=== PATIENT | male | born 1990 | race African-American/Black ===

== ENCOUNTER 2016-11-21 15:25 | Emergency (ER) | payer BC ==
[~2016-11-21] VITALS: Ht 177.8 cm; Wt 74.8 kg
[2016-11-21 15:30] VITALS: BP 126/85
[2016-11-21 16:17] LABS: BASO % 1 % (0-3); EOS # 0.1 x10^3/uL (0.0-0.7); EOS % 2 % (0-3); HEMATOCRIT 40.7 % (39.0-53.0); HEMOGLOBIN 13.5 g/dL (13.0-17.5); LYMPH # 1.4 x10^3/uL (1.0-4.8); LYMPH % 34 % (24-48); MEAN CORPUSCULAR HEMOGLOBIN 28 pg (25-35); MEAN CORPUSCULAR HGB CONC 33 g/dL (31-37); MEAN CORPUSCULAR VOLUME 85 fL (79-100); MONO # 0.6 x10^3/uL (0.0-1.1); MONO % 14 % (0-9); NEUT # 2.2 x10^3uL (1.8-7.7); NEUT % 50 % (31-73); PLATELET COUNT 176 x10^3/uL (140-400); RED BLOOD COUNT 4.78 x10^6/uL (4.30-5.70); RED CELL DISTRIBUTION WIDTH 12.7 % (11.5-14.5); WHITE BLOOD COUNT 4.3 x10^3/uL (4.0-11.0)
[2016-11-21 16:30] LABS: ALBUMIN 3.7 g/dL (3.4-5.0); ALBUMIN/GLOBULIN RATIO 1.1 (1.0-1.7); CALCIUM 8.7 mg/dL (8.5-10.1); CREATININE 1.3 mg/dL (0.7-1.3); GFR 67.8; POTASSIUM 4.2 mmol/L (3.5-5.1); TOTAL BILIRUBIN 0.3 mg/dL (0.2-1.0)
[2016-11-21] MEDS ORDERED: IV NORMAL SALINE 1,000ML 1,000 ML IV SCH (16:30)
--- NOTE | 2016-11-21 16:30 | PHYS DOC ---
Adult General Chief Complaint Chief Complaint: ABDOMINAL PAIN HPI HPI Patient is a 26-year-old male who presents ambulatory to the emergency department complaining of abdominal pain. Patient ate a salad and some possible last night and also drank some alcohol. His stomach did not hurt last night. This morning he woke up with abdominal pain and he did vomit once or twice. He went ahead and went to work and did work today, but he continued to have abdominal pain all day long. Sometimes he had to walk hunched over. It hurts to walk. His stomach just hurts, he does not think it feels crampy or like diarrhea pain, it just hurts. The pain goes through to his back. He did have a somewhat loose stool one time. No blood or black stools. He's never had this before. He's never had abdominal surgery. No history of pancreatitis. He does drink alcohol "sometimes" but is never had a problem in the past. Patient denies chronic medical problems. Review of Systems Review of Systems Constitutional: Denies fever or chills [] HENT: Denies nasal congestion or sore throat [] Respiratory: Denies cough or shortness of breath [] Cardiovascular: Denies CP GI: As in history of present illness : Denies dysuria or hematuria [] Musculoskeletal: Denies back pain or joint pain [] Integument: Denies rash or skin lesions [] Neurologic: Denies headache, focal weakness or sensory changes [] Current Medications Current Medications Current Medications Medications (Trade) Dose Ordered Sig/Afshan Start Time Stop Time Status Last Admin Dose Admin Sodium Chloride 1,000 ml @ 1,000 mls/hr Q1H 11/21/16 15:55 11/21/16 16:54 UNV Allergies Allergies Allergies Coded Allergies Type Severity Reaction Last Updated Verified No Known Drug Allergies 11/21/16 No Physical Exam Physical Exam Constitutional: Well developed, well nourished, no acute distress, non-toxic appearance. Alert, mentating normally. HENT: Normocephalic, atraumatic, bilateral external ears normal, nose normal. [ ] Eyes: conjunctiva normal, no discharge. [] Neck: Normal range of motion, no stridor. [] Cardiovascular:Heart rate regular rhythm, no murmur [] Lungs & Thorax: Bilateral breath sounds clear to auscultation [] Abdomen: Bowel sounds normal, soft, nondistended, no masses, no pulsatile masses. Moderate tenderness to palpation across the upper abdomen, nonlocalized , more tender in the mid abdomen but also tender both right upper quadrant and left upper quadrant. No significant lower abdominal tenderness. Skin: Warm, dry, no erythema, no rash. [] Extremities: No tenderness, no cyanosis, no clubbing, ROM intact, no edema. [] Neurologic: Alert and oriented X 3, normal motor function, normal sensory function, no focal deficits noted. [] Current Patient Data Lab Results Laboratory Tests Test 11/21/16 16:00 White Blood Count 4.3 x10^3/uL (4.0-11.0) Red Blood Count 4.78 x10^6/uL (4.30-5.70) Hemoglobin 13.5 g/dL (13.0-17.5) Hematocrit 40.7 % (39.0-53.0) Mean Corpuscular Volume 85 fL (79-100) Mean Corpuscular Hemoglobin 28 pg (25-35) Mean Corpuscular Hemoglobin Concent 33 g/dL (31-37) Red Cell Distribution Width 12.7 % (11.5-14.5) Platelet Count 176 x10^3/uL (140-400) Neutrophils (%) (Auto) 50 % (31-73) Lymphocytes (%) (Auto) 34 % (24-48) Monocytes (%) (Auto) 14 % (0-9) H Eosinophils (%) (Auto) 2 % (0-3) Basophils (%) (Auto) 1 % (0-3) Neutrophils # (Auto) 2.2 x10^3uL (1.8-7.7) Lymphocytes # (Auto) 1.4 x10^3/uL (1.0-4.8) Monocytes # (Auto) 0.6 x10^3/uL (0.0-1.1) Eosinophils # (Auto) 0.1 x10^3/uL (0.0-0.7) Basophils # (Auto) 0.0 x10^3/uL (0.0-0.2) EKG EKG [] Radiology/Procedures Radiology/Procedures Three-view acute abdomen series read by me. Heart size is normal. Lung randle are clear. No cardiopulmonary abnormality. No free air. No obstructive bowel gas pattern. Unremarkable abdominal series. [] Course & Med Decision Making Course & Med Decision Making Pertinent Labs and Imaging studies reviewed. (See chart for details) 26-year-old healthy male presents with abdominal pain which started early this morning and has persisted all day long. He did drink alcohol last night. He has no history of pancreatitis. I discussed with the patient that we would give him some IV fluids while we check some labs and abdominal series, he is agreeable to that plan. Labs are all entirely normal, lipase normal. He was given a dose of IV Pepcid. See instructions for plan. [] Dragon Disclaimer Dragon Disclaimer This chart was dictated in whole or in part using Voice Recognition software in a busy, high-work load, and often noisy Emergency Department environment. It may contain unintended and wholly unrecognized errors or omissions. Departure Departure: Impression: Primary Impression: Abdominal pain, bilateral upper quadrant Additional Impression: Alcoholic gastritis Disposition: 01 HOME, SELF-CARE Condition: STABLE Patient Instructions: Alcoholic Gastritis-Brief Additional Instructions: I believe your pain is probably inflamed stomach caused by alcohol. For 1 week, purchase [id number] acid reducing medicine such as Nexium and take as directed. Don't drink any alcohol, eat and drink only things that are soothing to your stomach, nothing spicy or greasy. If not getting better in 2-3 days, see your doctor for recheck. Problem Qualifiers EMANUEL SCHROEDER MD November 21, 2016 16:30
--- NOTE | 2016-11-21 16:33 | RAD ---
Indication: Abdominal pain for one day. Technique: Abdominal series with PA chest radiograph contains 3 images. No comparison is available. Findings: The lungs are clear. The heart is not enlarged. There is no free air. There is no dilated bowel loop. Bony structures are intact. Impression: Nonobstructive bowel gas pattern.
[2016-11-21] MEDS ORDERED: FAMOTIDINE 20 MG/2 ML VIAL ONE (16:52)
[2016-11-21] MEDS ORDERED: FAMOTIDINE 20 MG/2 ML VIAL IVP ONE (17:00)
== END 2016-11-21 17:12 | disposition home or self-care (01) ==
LOC: ER 15:25
DX: K29.20 Alcoholic gastritis without bleeding (principal)
CPT/HCPCS: 36415; 74022; 80053; 83690; 85027; 96361; 96374; 99285; S0028; J7030

== ENCOUNTER 2016-12-20 10:48 | Emergency (ER) | payer BC ==
[~2016-12-20] VITALS: Ht 177.8 cm; Wt 74.8 kg
[2016-12-20 10:59] VITALS: BP 100/71
[2016-12-20] MEDS ORDERED: CEPH-264 PO (11:09)
[2016-12-20] MEDS ORDERED: POLY10DR LEFTEYE (11:09)
--- NOTE | 2016-12-20 11:13 | PHYS DOC ---
Past History Past Medical History: No Pertinent History Past Surgical History: No Surgical History Alcohol Use: Occasionally Drug Use: None Adult General Chief Complaint Chief Complaint: EYE PROBLEMS HPI HPI This 26-year-old man presents because of his left eyelid is swollen for the past several days. His eyelid has not been itching or hurting but has been swollen and red. Review of Systems Review of Systems Constitutional: Denies fever or chills [] Eyes: Denies change in visual acuity, he does have some redness and swelling of the left upper eyelid] HENT: Denies nasal congestion or sore throat [] Respiratory: Denies cough or shortness of breath [] Cardiovascular: No additional information not addressed in HPI [] GI: Denies abdominal pain, nausea, vomiting, bloody stools or diarrhea [] : Denies dysuria or hematuria [] Musculoskeletal: Denies back pain or joint pain [] Integument: Denies rash or skin lesions [] Neurologic: Denies headache, focal weakness or sensory changes [] Endocrine: Denies polyuria or polydipsia [] Allergies Allergies Allergies Coded Allergies Type Severity Reaction Last Updated Verified No Known Drug Allergies 12/20/16 No Physical Exam Physical Exam Constitutional: Well developed, well nourished, no acute distress, non-toxic appearance. [] HENT: Normocephalic, atraumatic, bilateral external ears normal, oropharynx moist, no oral exudates, nose normal. [] Eyes: PERRLA, EOMI, conjunctiva normal, no discharge. There is swelling of the left upper eyelid as well as some redness and slight amount of tenderness Neck: Normal range of motion, no tenderness, supple, no stridor. [] Cardiovascular:Heart rate regular rhythm, no murmur [] Lungs & Thorax: Bilateral breath sounds clear to auscultation [] Abdomen: Bowel sounds normal, soft, no tenderness, no masses, no pulsatile masses. [] Skin: Warm, dry, no erythema, no rash. [] Back: No tenderness, no CVA tenderness. [] Extremities: No tenderness, no cyanosis, no clubbing, ROM intact, no edema. [] Neurologic: Alert and oriented X 3, normal motor function, normal sensory function, no focal deficits noted. [] Psychologic: Affect normal, judgement normal, mood normal. [] Current Patient Data Vital Signs Vital Signs Date Time Temp Pulse Resp B/P (MAP) Pulse Ox O2 Delivery O2 Flow Rate FiO2 12/20/16 10:59 97.5 63 18 98 Room Air EKG EKG [] Radiology/Procedures Radiology/Procedures [] Impressions: Blepharitis Course & Med Decision Making Course & Med Decision Making The patient was placed on Polytrim eyedrops and also placed on Keflex 500 mg by mouth twice a day [] Dragon Disclaimer Dragon Disclaimer This chart was dictated in whole or in part using Voice Recognition software in a busy, high-work load, and often noisy Emergency Department environment. It may contain unintended and wholly unrecognized errors or omissions. Departure Departure: Impression: Primary Impression: Blepharitis Disposition: 01 HOME, SELF-CARE Condition: STABLE Patient Instructions: Blepharitis, Blepharitis, Ggry-sp-Syux Scripts Cephalexin (KEFLEX) 500 Mg Capsule 1 CAP PO BID, #14 CAP Prov: CADE RICHARDS MD 12/20/16 Polymyxin B Sulf/Trimethoprim (POLYTRIM EYE DROPS) 10 Ml Drops 1 DROP LEFTEYE Q6HRS for 5 Days, #10 ML Prov: CADE RICHARDS MD 12/20/16 CADE RICHARDS MD Dec 20, 2016 11:13
== END 2016-12-20 11:18 | disposition home or self-care (01) ==
LOC: ER 10:48
DX: H01.004 Unspecified blepharitis left upper eyelid (principal)
CPT/HCPCS: 99283